=== PATIENT | male | born 1990 | race Caucasian/White ===

== ENCOUNTER 2016-10-17 18:37 | Emergency (ER) | payer OTHER ==
[~2016-10-17] VITALS: Ht 167.6 cm; Wt 56.7 kg
[~2016-10-17 18:37] MED LIST: MOTRIN800 MG PO; TRAMADOL50 MG PO; TYLENOL #3 300/1 TAB PO
[2016-10-17 18:56] VITALS: BP 139/77
--- NOTE | 2016-10-17 19:16 | NUR ---
TO ER OF1
--- NOTE | 2016-10-17 19:21 | NUR ---
26 y/o here c/o migraine headaches that radiates to both eyes x 4 days. Pt states has a hx of migraine headaches but hasnt being able to control heachades this time. Denies any fever, nausea or vomitting. PA awared of it.
[2016-10-17 20:19] VITALS: BP 127/82
--- NOTE | 2016-10-17 20:19 | NUR ---
Patient discharged with v/s stable. Written and verbal after care instructions given and explained. Patient alert, oriented and verbalized understanding of instructions. Ambulatory with steady gait. All questions addressed prior to discharge. ID band removed. Patient advised to follow up with PMD OR RETURN TO ER IF CONDITION DOES NOT IMPROVE.. Rx of NORCO AND MOTRIN given. Patient educated on indication of medication including possible reaction and side effects. Opportunity to ask questions provided and answered.
[2017-01-12] MEDS ORDERED: HYDROCODONE BIT1 T47 PO (19:10)
== END 2016-10-17 20:19 | disposition home or self-care (01) ==
LOC: MED 18:42
DX: G43.909 Migraine, unspecified, not intractable, without status migrainosus (principal); Z98.890 Other specified postprocedural states

== ENCOUNTER 2017-01-12 18:44 | Emergency (ER) | payer OTHER ==
[~2017-01-12] VITALS: Ht 167.6 cm; Wt 59.0 kg
[~2017-01-12 18:44] MED LIST changes: +IBUP-974 PO; -MOTRIN800 MG PO; -TRAMADOL50 MG PO; -TYLENOL #3 300/1 TAB PO
[2017-01-12 19:06] VITALS: BP 132/77
[2017-01-12] MEDS ORDERED: [UNRECOGNIZED DRUG - CODE] PO (19:10)
--- NOTE | 2017-01-12 19:37 | NUR ---
TO BED 6
--- NOTE | 2017-01-12 19:42 | NUR ---
26 Y/O M W/C/O MIGRAINE HEADACHES X 2 WKS. DENIES ANY N/V, DIZZINESS OR VISUAL PROBLEMS. NO S/S OF DISTRESS NOTED AT THE MOMENT. ER MADE AWARE.
[2017-01-12 20:03] VITALS: BP 129/86
--- NOTE | 2017-01-12 20:03 | NUR ---
Patient discharged with v/s stable. Written and verbal after care instructions given and explained. Patient alert, oriented and verbalized understanding of instructions. Ambulatory with steady gait. All questions addressed prior to discharge. ID band removed. Patient advised to follow up with PMD TOMORROW OR RETURN TO ER IF CONDITION WORSENS. Rx of NORCO, AND IBUPROFEN given. Patient educated on indication of medication including possible reaction and side effects. Opportunity to ask questions provided and answered.
== END 2017-01-12 20:03 | disposition home or self-care (01) ==
LOC: MED 18:44
DX: R51 Headache (principal); F17.210 Nicotine dependence, cigarettes, uncomplicated
CPT/HCPCS: 99283

== ENCOUNTER 2017-07-12 13:18 | Emergency (ER) | payer OTHER ==
[~2017-07-12] VITALS: Ht 170.2 cm; Wt 61.2 kg
[~2017-07-12 13:18] MED LIST changes: +[UNRECOGNIZED DRUG - CODE] PO
[2017-07-12 13:57] VITALS: BP 106/73
--- NOTE | 2017-07-12 14:28 | NUR ---
Patient to bed 07.
--- NOTE | 2017-07-12 14:43 | NUR ---
PT PRESENTS TO ER W/C/O HEADACHE X2 DAYS. DENIES V/D; SKIN IS PINK/WARM/DRY; AAOX4 WITH EVEN AND STEADY GAIT; LUNGS CLEAR BL; HR EVEN AND REGULAR; PT DENIES ANY FEVER, CP, SOB, OR COUGH AT THIS TIME; PATIENT STATES PAIN OF 5/10 AT THIS TIME; VSS; PATIENT POSITIONED FOR COMFORT; HOB ELEVATED; BEDRAILS UP X2; BED DOWN. ER MD MADE AWARE OF PT STATUS.
[2017-07-12] MEDS ORDERED: IBUPROFEN 800 MG TAB PO ONE (15:10)
[2017-07-12 15:22] VITALS: BP 132/68
--- NOTE | 2017-07-12 15:22 | NUR ---
Patient discharged with v/s stable. Written and verbal after care instructions given and explained. Patient alert, oriented and verbalized understanding of instructions. Ambulatory with steady gait. All questions addressed prior to discharge. ID band removed. Patient advised to follow up with PMD. Rx of ibuprofen, fioricet given. Patient educated on indication of medication including possible reaction and side effects. Opportunity to ask questions provided and answered.
== END 2017-07-12 15:22 | disposition home or self-care (01) ==
LOC: MED 13:18
DX: R51 Headache (principal); Z79.899 Other long term (current) drug therapy
CPT/HCPCS: 99283

== ENCOUNTER 2017-08-06 16:37 | Emergency (ER) | payer OTHER ==
[~2017-08-06] VITALS: Ht 167.6 cm; Wt 62.2 kg
[2017-08-06 16:55] VITALS: BP 127/82
--- NOTE | 2017-08-06 17:13 | NUR ---
PATIENT AMBULATED TO ER BED 1
--- NOTE | 2017-08-06 17:30 | NUR ---
27/M BIB SELF C/O MIGRAINE 12/04. HX: MIGRAINE, RT EYE SURGERY.
[2017-08-06] MEDS ORDERED: KETOROLAC 60 MG/2 ML VIAL IM ONE (17:35)
[2017-08-06] MEDS ORDERED: METOCLOPRAMIDE 10 MG/2 ML INJ VIAL IM ONE (17:35)
--- NOTE | 2017-08-06 17:45 | NUR ---
Patient being evaluated by physician at bedside.
--- NOTE | 2017-08-06 18:50 | NUR ---
Patient discharged with v/s stable. Written and verbal after care instructions given and explained. Patient alert, oriented and verbalized understanding of instructions. Ambulatory with steady gait. All questions addressed prior to discharge. ID band removed. Patient advised to follow up with PMD. Rx of FIORICET AND REGLAN given. Patient educated on indication of medication including possible reaction and side effects. Opportunity to ask questions provided and answered.
[2017-08-06 19:02] VITALS: BP 121/70
== END 2017-08-06 18:50 | disposition home or self-care (01) ==
LOC: MED 16:37
DX: G43.909 Migraine, unspecified, not intractable, without status migrainosus (principal); Z79.899 Other long term (current) drug therapy
CPT/HCPCS: 96372; 99284; J1885; J2765